=== PATIENT | male | born 1985 | race African-American/Black ===

== ENCOUNTER → 2016-11-26 | Outpatient (REF) | payer OTHER ==
[2016-11-26 09:39] LABS: SPERM ABNORMAL FORMS WBC'S NOTED
[2016-11-26 09:40] LABS: % NORMAL FORMS < 4 % (>=4); IMMOTILITY 78 %; NON PROGRESSIVE MOTILITY (c) 19 %; PROGRESSIVE MOTILITY (a) 3 % (>=32); SPERM# 5.4 M/Ejac (>=39); TOTAL FUNCTIONAL 0 M/Ejac.; TOTAL MOTILITY 22 % (>=40); TOTAL PROGRESSIVE SPERM 0.2 M/Ejac.
== END ==
LOC: M LAB REF 07:50
PROVIDERS: ATTEND Neuromusculoskeletal Medicine & OMM
DX: Z31.41 Encounter for fertility testing (principal)

== ENCOUNTER → 2016-12-14 | Outpatient (CLI) | payer OTHER ==
[2016-12-14 15:25] LABS: ESTRADIOL 55.2 PG/ML (<39.8); LUTEINIZING HORMONE 10.6 mIU/mL (1.5-9.3); PROLACTIN 4.6 NG/ML (2.1-17.7)
[2016-12-14 15:26] LABS: FOLLICLE STIMULATING HORMONE 12.7 mIU/mL (1.4-18.1)
== END ==
LOC: M SMT 08:20
PROVIDERS: ATTEND Nurse Practitioner Women's Health
DX: N46.11 Organic oligospermia (principal)

== ENCOUNTER → 2016-12-15 | Outpatient (CLI) | payer OTHER ==
--- NOTE | 2016-12-16 01:29 | REP ---
Clinical: Testicular pain. Technique: Real time acosta scale and color Doppler evaluation using linear high frequency transducer. Findings: The bilateral testicles and epididymi are essentially normal in contour, size, echogenicity and vascularity. No mass lesion, infectious/inflammatory process, or torsion. Incidental note is made of 7 mm right and 2.4 mm left epididymal head cysts. Small insignificant right hydrocele noted. No varicoceles. Right testicle measures 3.4 x 1.7 x 2.2 cm. Left testicle measures 3.0 x 1.7 x 1.9 cm. Impression: Relatively normal scrotal ultrasound as described above. Signed by Juan Daniel Stevens MD 12/16/2016 01:20 A
== END ==
LOC: M RAD 18:47
PROVIDERS: ATTEND Nurse Practitioner Women's Health
DX: N46.11 Organic oligospermia (principal)

== ENCOUNTER → 2017-03-12 | Outpatient (REF) | payer OTHER ==
[2017-03-12 09:28] LABS: SPERM ABNORMAL FORMS OTHER (SPECIFIY)
[2017-03-12 09:29] LABS: % NORMAL FORMS < 4 % (>=4); IMMOTILITY 81 %; NON PROGRESSIVE MOTILITY (c) 18 %; PROGRESSIVE MOTILITY (a) 1 % (>=32); SPERM# 8.2 M/Ejac (>=39); TOTAL FUNCTIONAL 0 M/Ejac.; TOTAL MOTILITY 19 % (>=40); TOTAL PROGRESSIVE SPERM 0.1 M/Ejac.
== END ==
LOC: M SMT 08:52
PROVIDERS: ATTEND Nurse Practitioner Women's Health
DX: N46.11 Organic oligospermia (principal)

== ENCOUNTER → 2017-03-24 | Outpatient (CLI) | payer OTHER ==
[2017-03-24 20:06] LABS: ESTRADIOL 34.8 PG/ML (<39.8)
[2017-03-26 14:10] LABS: TESTOSTERONE FREE (DIRECT) 21.8 pg/mL (8.7-25.1)
== END ==
LOC: M SMT 11:17
DX: N46.11 Organic oligospermia (principal)
CPT/HCPCS: 84403

== ENCOUNTER → 2018-02-23 | Outpatient (CLI) | payer OTHER ==
[~2018-02-23] MED LIST: ISOVUE-370 76% 100ML VIAL (Q9967) As Ordered
== END ==
LOC: M RAD 08:35
DX: I88.0 Nonspecific mesenteric lymphadenitis (principal)
CPT/HCPCS: Q9967

== ENCOUNTER 2018-05-25 15:05 | Emergency (ER) | payer OTHER ==
[~2018-05-25] VITALS: Ht 167.6 cm; Wt 76.4 kg
[2018-05-25] MEDS ORDERED: KETOROLAC 30 MG/ML VIAL (J1885) IV ONE (16:00)
[2018-05-25 16:22] LABS: BASO % 0.7 % (0.0-1.0); EOS # 0.1 10^3/uL (0.0-0.50); EOS % 1.3 % (0.0-3.0); HEMATOCRIT 43.5 % (42.0-52.0); HEMOGLOBIN 13.9 g/dl (13.5-17.5); LYMPH # 2.2 10^3/uL (1.5-4.5); LYMPH % 39.9 % (24.0-44.0); MEAN CORPUSCULAR HEMOGLOBIN 28.5 pg (27.0-33.0); MEAN CORPUSCULAR VOLUME 89.3 fl (80.0-96.0); MONO # 0.4 10^3/uL (0.0-0.8); NEUTROPHILS # 2.8 10^3/uL (1.8-7.7); NEUTROPHILS % 50.9 % (36.0-66.0); PLATELET COUNT, AUTOMATED 232 10^3/uL (150-450); RED BLOOD COUNT 4.87 10^6/uL (4.30-6.10); WHITE BLOOD COUNT 5.4 10^3/uL (4.0-10.0)
[2018-05-25 16:39] LABS: ERYTHROCYTE SEDIMENTATION RATE 3 mm/hr (0-15)
[2018-05-25 16:48] LABS: BLOOD UREA NITROGEN 18 MG/DL (7-18); C REACTIVE PROTEIN QUANTITATIV < 0.30 MG/DL (0.00-0.30); CALCIUM LEVEL 9.1 MG/DL (8.5-10.1); CARBON DIOXIDE LEVEL 30 MEQ/L (21-32); CHLORIDE LEVEL 104 MEQ/L (98-107); CREATININE FOR GFR 1.45 MG/DL (0.70-1.30); GLOMERULAR FILTRATION RATE > 60.0 (>60); GLUCOSE, FASTING 59 MG/DL (70-100); POTASSIUM SERUM 3.8 MEQ/L (3.5-5.1); SODIUM LEVEL 140 MEQ/L (136-145)
[2018-05-25] MEDS ORDERED: MACR100C43 PO (17:07)
--- NOTE | 2018-05-25 17:07 | REP ---
CT ABDOMEN AND PELVIS WITHOUT CONTRAST: CT abdomen and pelvis performed without oral or IV contrast. Sagittal and coronal reconstruction images are performed. Visualized lung bases are clear. The liver, spleen, adrenals and pancreas are grossly unremarkable. Patient is a renal transplant donor and there is absence of the right kidney. The left kidney appears grossly unremarkable. There is no left renal or ureteral calculus. No bladder calculus is seen. There is no left hydroureteronephrosis. There is no abdominal aortic aneurysm. I see no gross adenopathy. I seen no free air or free fluid. No bowel wall thickening is seen. There is no evidence of appendicitis. Urinary bladder is mildly distended and grossly unremarkable. IMPRESSION: No evidence of left renal or ureteral calculus and no bladder calculus. No hydroureteronephrosis. No evidence of appendicitis. No free air or free fluid. Electronically Signed by Matti Romano MD 05/25/2018 11:49 P
[2018-05-25] MEDS ORDERED: NITROFURANTOIN (MACROBID) 100 MG CAP PO ONE (17:15)
[2018-05-25 17:39] VITALS: BP 128/62
== END 2018-05-25 17:40 | disposition home or self-care (01) ==
LOC: M ED 15:05
DX: N39.0 Urinary tract infection, site not specified (principal); R31.0 Gross hematuria; Z87.442 Personal history of urinary calculi; Z88.8 Allergy status to other drugs, medicaments and biological substances
CPT/HCPCS: 74176; 80048; 81001; 85025; 85652; 86140; 96374; 99284; J1885

== ENCOUNTER → 2018-09-14 | Outpatient (REF) | payer OTHER ==
[~2018-09-14] MED LIST changes: -ISOVUE-370 76% 100ML VIAL (Q9967) As Ordered; +MACR100C43 PO
[2018-09-14 14:14] LABS: PERCENT SATURATION 18.6 % (19.7-50.0)
[2018-09-14 14:28] LABS: FOLATE 9.7 NG/ML
== END ==
LOC: M LAB REF 13:09
PROVIDERS: ATTEND Internal Medicine Nephrology
DX: D64.9 Anemia, unspecified (principal)

== ENCOUNTER 2019-08-05 14:54 | Emergency (ER) | payer OTHER ==
[~2019-08-05] VITALS: Ht 167.6 cm; Wt 81.0 kg
[2019-08-05 14:55] VITALS: BP 124/65
[2019-08-05] MEDS ORDERED: ALL10TAB29 PO (15:08)
[2019-08-05] MEDS ORDERED: ERYT5OIN25 OS (15:10)
[2019-08-05] MEDS ORDERED: FLON1SPR NARES (15:10)
[2019-08-05] MEDS ORDERED: ERYTHROMYCIN OPHTH OINT OS ONE (15:15)
== END 2019-08-05 15:21 | disposition home or self-care (01) ==
LOC: M ED 14:54
DX: H10.9 Unspecified conjunctivitis (principal); Z79.899 Other long term (current) drug therapy

== ENCOUNTER 2021-12-05 17:07 | Emergency (ER) | payer OTHER ==
[~2021-12-05] VITALS: Ht 167.6 cm; Wt 81.4 kg
[~2021-12-05 17:07] MED LIST changes: +CETI-24 PO; +ERYT5OIN25 OS; +FLON1SPR NARES
[2021-12-05 17:09] VITALS: BP 136/63
== END 2021-12-05 19:00 | disposition left against medical advice (07) ==
LOC: M ED 17:07
DX: Z53.21 Procedure and treatment not carried out due to patient leaving prior to being seen by health care provider (principal)

== ENCOUNTER 2021-12-05 20:06 | Emergency (ER) | payer OTHER ==
[~2021-12-05] VITALS: Ht 177.8 cm; Wt 81.5 kg
[2021-12-05 20:06] VITALS: BP 157/64
[2021-12-05 22:17] LABS: BASO % 0.6 % (0.0-1.0); EOS # 0.4 10^3/uL (0.0-0.5); EOS % 6.1 % (0.0-3.0); HEMOGLOBIN 13.3 g/dl (13.5-17.5); LYMPH # 2.7 10^3/uL (1.5-5.0); LYMPH % 37.6 % (24.0-44.0); MEAN CORPUSCULAR HEMOGLOBIN 29.6 pg (27.0-33.0); MEAN CORPUSCULAR HGB CONC 32.4 g/dl (32.0-36.5); MEAN CORPUSCULAR VOLUME 91.3 fl (80.0-96.0); MONO # 0.5 10^3/uL (0.0-0.8); MONO % 6.3 % (2.0-8.0); NEUTROPHILS # 3.6 10^3/uL (1.5-8.5); NEUTROPHILS % 49.3 % (36.0-66.0); PLATELET COUNT, AUTOMATED 206 10^3/uL (150-450); RED BLOOD COUNT 4.49 10^6/uL (4.30-6.10); WHITE BLOOD COUNT 7.3 10^3/uL (4.0-10.0)
[2021-12-05 22:41] LABS: ALBUMIN 3.9 GM/DL (3.2-5.2); ALT/SGPT 33 U/L (12-78); BILIRUBIN,TOTAL 1.1 MG/DL (0.2-1.0); BLOOD UREA NITROGEN 12 MG/DL (7-18); CALCIUM LEVEL 9.2 MG/DL (8.5-10.1); CARBON DIOXIDE LEVEL 28 MEQ/L (21-32); CHLORIDE LEVEL 105 MEQ/L (98-107); CREATININE FOR GFR 1.46 MG/DL (0.70-1.30); GLOMERULAR FILTRATION RATE > 60.0 (>60); GLUCOSE, FASTING 85 MG/DL (70-100); POTASSIUM SERUM 3.8 MEQ/L (3.5-5.1); SODIUM LEVEL 137 MEQ/L (136-145); TOTAL PROTEIN 7.5 GM/DL (6.4-8.2)
== END 2021-12-05 22:55 | disposition left against medical advice (07) ==
LOC: M ED 20:06
DX: Z53.21 Procedure and treatment not carried out due to patient leaving prior to being seen by health care provider (principal)

== ENCOUNTER 2022-06-26 20:23 | Emergency (ER) | payer OTHER ==
[2022-06-26] MEDS ORDERED: KETOROLAC 60MG 2ML VIAL IM ONE (21:30)
[2022-06-26 21:33] LABS: RSV AMPLIFICATION NEGATIVE (NEGATIVE)
[2022-06-26 22:35] VITALS: BP 125/57
== END 2022-06-26 22:42 | disposition home or self-care (01) ==
LOC: M ED 20:23
DX: J06.9 Acute upper respiratory infection, unspecified (principal); B34.9 Viral infection, unspecified
CPT/HCPCS: 87631; 96372; 99283; J1885

== ENCOUNTER → 2024-07-14 | Outpatient (REF) | payer OTHER ==
[2024-07-14 13:09] LABS: APPEARANCE, URINE CLEAR (CLEAR); BACTERIA, URINE AUTO NEGATIVE (NEGATIVE); BILIRUBIN, URINE AUTO NEGATIVE (NEGATIVE); BLOOD, URINE BLOOD NEGATIVE (NEGATIVE); COLOR, URINE YELLOW (YELLOW); GLUCOSE, URINE (UA) AUTO NEGATIVE (NEGATIVE); KETONE, URINE AUTO NEGATIVE (NEGATIVE); LEUKOCYTE ESTERASE, URINE AUTO NEGATIVE (NEGATIVE); NITRITE, URINE AUTO NEGATIVE (NEGATIVE); PROTEIN, URINE AUTO NEGATIVE (NEGATIVE); RBC, URINE AUTO 3 /HPF (0-3); SPECIFIC GRAVITY URINE AUTO 1.023 (1.002-1.035); SQUAMOUS EPITHELIAL CELL UR AU 0 /HPF (0-6); WBC, URINE AUTO 0 /HPF (0-3)
== END ==
LOC: M LAB REF 12:24
PROVIDERS: ATTEND Physician Assistant
DX: N39.0 Urinary tract infection, site not specified (principal)

== ENCOUNTER → 2024-07-18 | Outpatient (REF) | payer OTHER ==
[2024-07-18 13:32] LABS: Trichomonas vaginalis (AMP) NOT DETECTED (NEGATIVE)
[2024-07-18 13:57] LABS: GC DNA AMPLIFICATION NEGATIVE (NEGATIVE)
== END ==
LOC: M LAB REF 11:48
PROVIDERS: ATTEND Physician Assistant Medical
DX: Z20.2 Contact with and (suspected) exposure to infections with a predominantly sexual mode of transmission (principal)

== ENCOUNTER → 2024-11-28 | Outpatient (CLI) | payer OTHER ==
[~2024-11-28] MED LIST changes: +ISOVUE-370 76% 100 ML VIAL ONE
== END ==
LOC: M PLAIMG 12:37
PROVIDERS: ATTEND Internal Medicine Nephrology
DX: Z52.4 Kidney donor (principal); R31.9 Hematuria, unspecified; Z90.5 Acquired absence of kidney; R93.2 Abnormal findings on diagnostic imaging of liver and biliary tract; K40.20 Bilateral inguinal hernia, without obstruction or gangrene, not specified as recurrent
CPT/HCPCS: 74178; Q9967

== ENCOUNTER 2024-12-27 09:29 | Emergency (ER) | payer OTHER ==
[~2024-12-27] VITALS: Ht 167.6 cm; Wt 88.4 kg
[~2024-12-27 09:29] MED LIST changes: -ISOVUE-370 76% 100 ML VIAL ONE
[2024-12-27 09:32] VITALS: BP 133/71; TEMP 97.1; O2SAT 99
[2024-12-27] MEDS ORDERED: METH4PACK PO (09:39)
[2024-12-27] MEDS ORDERED: BENA25CA4 PO (09:39)
[2024-12-27] MEDS ORDERED: CETI-24 PO (10:31)
== END 2024-12-27 10:38 | disposition home or self-care (01) ==
LOC: M ED 09:29
DX: T78.40XA Allergy, unspecified, initial encounter (principal); T63.441A Toxic effect of venom of bees, accidental (unintentional), initial encounter; Z79.899 Other long term (current) drug therapy